=== PATIENT | male | born 1965 | race Caucasian/White ===

== ENCOUNTER 2016-10-22 14:37 | Inpatient (IN) | payer MEDICARE, OTHER ==
[~2016-10-22] VITALS: Ht 175.3 cm; Wt 81.4 kg
[~2016-10-22 14:37] MED LIST: ALB.5NB20 IH; ALPR1TAB2 PO; AMLO-218 PO; ATEN100T PO; BENA10TA48 PO; CARAS PO; DONE10TA60 PO; EMTR200 PO; ESCI20TA PO; LEVO50TA74 PO; LORA-444 PO; LOSA50TA2 PO; OXYC30TA64 PO; PANT40TA4 PO; RALT400T4 PO; TEMA30CA6 PO; ZOF8 PO; [UNRECOGNIZED DRUG - CODE] PO
--- NOTE | 2016-10-22 18:10 | RADRPT ---
PROCEDURE: XR Chest. CLINICAL INDICATION: Chest pain. TECHNIQUE: Single frontal view of the chest was obtained. COMPARISON: Chest x-ray 10/06/2015 05:35 p.m. FINDINGS: The soft tissues are normal. The bony elements are normal. The heart, cardiomediastinal silhouette and hilar structures are normal. The pulmonary vasculature is normal. There is a left-sided aorta. The lungs are clear. The costophrenic angles are normal. IMPRESSION: 1. Stable chest x-ray with no evidence of active cardiopulmonary disease. RPTAT:AAJJ Physician Jose Date Time Electronically viewed and signed by Brent Acharya Physician on 10/22/2016 18:10 /
--- NOTE | 2016-10-22 18:40 | RADRPT ---
PROCEDURE: US Lower extremity Venous. CLINICAL INDICATION: Right leg edema TECHNIQUE: Multiple sonographic images of the right lower extremity deep venous system was obtaine d utilizing grayscale, color-flow, compressive sonography and doppler imaging with augmentation. Th e images were reviewed on a PACS workstation. COMPARISON: None. FINDINGS: There is normal compressibility and flow within the right common femoral, femoral, posterior tibial, peroneal and popliteal veins. There is a right groin AV graft which is patent. RPTAT: AA IMPRESSION: No sonographic evidence for deep venous thrombosis. Patent right groin AV graft. .Mauricio Cox MD, MD Date Time Electronically viewed and signed by .Mauricio Cox MD, on 10/22/2016 18:40 .S/
[2016-10-22] MEDS ORDERED: morphine 4 MG/ML VIAL IV STA ×2 (18:43→22:45)
[2016-10-22 19:08] LABS: ADD SCAN DIFF NO
[2016-10-22 19:11] LABS: BASOPHILS % 0.6 % (0.0-2.0); EOSINOPHILS # 0.2 10^3/ul (0.0-0.5); EOSINOPHILS % 3.7 % (0.0-7.0); HEMATOCRIT 31.7 % (42.0-52.0); HEMOGLOBIN 10.4 g/dl (14.0-18.0); LYMPHOCYTES # 1.9 10^3/ul (0.8-2.9); LYMPHOCYTES % 28.3 % (15.0-51.0); MEAN CORPUSCULAR HEMOGLOBIN 33.2 pg (29.0-33.0); MEAN CORPUSCULAR HGB CONC 32.8 g/dl (32.0-37.0); MEAN CORPUSCULAR VOLUME 101.3 fl (82.0-101.0); MONOCYTE # 0.6 10^3/ul (0.3-0.9); MONOCYTES % 8.6 % (0.0-11.0); NEUTROPHIL # 3.8 10^3/ul (1.6-7.5); NEUTROPHILS % 58.6 % (39.0-77.0); PLATELET COUNT 234 10^3/UL (140-415); RED BLOOD COUNT 3.13 10^6/ul (4.70-6.10); RED CELL DISTRIBUTION WIDTH 13.3 % (11.5-14.5); WHITE BLOOD COUNT 6.5 10^3/ul (4.8-10.8)
[2016-10-22] MEDS ORDERED: ONDANSETRON 4 MG INJ IV STA (19:32)
[2016-10-22] MEDS ORDERED: ALPR2TAB PO (19:34)
[2016-10-22 19:35] LABS: INR 1.14; PROTIME 14.6 Sec (12.2-14.2); PT RATIO 1.1
[2016-10-22 19:36] LABS: PARTIAL THROMBOPLASTIN TIME 29.2 Sec (25.0-35.0)
[2016-10-22 19:38] LABS: ANION GAP 20 (8-16); BLOOD UREA NITROGEN 81 mg/dl (7-20); CALCIUM 9.7 mg/dl (8.4-10.2); CARBON DIOXIDE 25 mmol/L (21-31); CHLORIDE 90 mmol/L (97-110); CREATININE 8.89 mg/dl (0.61-1.24); GLUCOSE 250 mg/dl (70-220); POTASSIUM 4.2 mmol/L (3.5-5.1); SODIUM 131 mmol/L (135-144)
[2016-10-22] MEDS ORDERED: LANT3I SC (19:38)
[2016-10-22 19:43] LABS: CREATINE KINASE 138 IU/L (23-200)
[2016-10-22] MEDS ORDERED: INSU100C SQ (19:44)
[2016-10-22] MEDS ORDERED: MORP60TA37 PO (19:45)
[2016-10-22] MEDS ORDERED: LEVO100T87 PO (19:47)
[2016-10-22] MEDS ORDERED: RANI300T PO (19:47)
[2016-10-22] MEDS ORDERED: CYCL-319 PO (19:47)
[2016-10-22] MEDS ORDERED: [UNRECOGNIZED DRUG - CODE] SQ (19:48)
[2016-10-22] MEDS ORDERED: DONE5TAB32 PO (19:48)
[2016-10-22] MEDS ORDERED: ATEN-51 PO (19:48)
[2016-10-22 19:49] LABS: TROPONIN-I < 0.012 ng/ml (0.00-0.12)
[2016-10-22] MEDS ORDERED: QUET25TA33 PO (19:49)
[2016-10-22] MEDS ORDERED: ABAC300T2 PO (19:49)
[2016-10-22] MEDS ORDERED: OXYC30TA PO (19:50)
[2016-10-22] MEDS ORDERED: ESOM40CA PO (19:50)
[2016-10-22] MEDS ORDERED: PRAV80TA27 PO (19:51)
--- NOTE | 2016-10-22 19:51 | ERA ---
ER Documentation Chief Complaint Date/Time DATE: 10/22/16 TIME: 19:47 Chief Complaint R LEG SWELLING X 4 DAYS HPI This is a 51-year-old male presents to the emergency room for evaluation of right lower extremity pain and swelling for the past 3 days. The patient does state that he is on dialysis and had a right femoral graft done by Dr. Drummond. The patient states that he noted pain over the site, and swelling and contacted his vascular surgeon who advised him to come to the emergency room for admission and a revision of the graft. The patient states that he did go to dialysis on Saturday and completed dialysis. The patient denies any trauma to the area and came to the ER for further evaluation. ROS All systems reviewed and are negative except as per history of present illness. Medications Home Meds Reported Medications Cyclobenzaprine Hcl* (Cyclobenzaprine Hcl*) 10 Mg Tablet, 20 MG PO TID, #60 TAB 10/22/16 Morphine Sulfate* (Ms Contin*) 60 Mg Tablet.sa, 60 MG PO Q12, TAB.SA 10/22/16 Insulin Lispro (Humalog) 100 Unit/1 Ml Cartridge, 0 SQ SLIDING SCALE DEPENDS HOW MUCH BSIS HIGH 10/22/16 Insulin Glargine* (Lantus*) 100 Unit/Ml Soln, 15 UNIT SC QHS, #1 VIAL 10/22/16 Alprazolam* (Xanax*) 2 Mg Tablet, 2 MG PO TID Y for ANXIETY, TAB 10/22/16 Discontinued Reported Medications Temazepam* (Restoril*) 30 Mg Capsule, 30 MG PO HS Y for INSOMNIA, CAP 10/06/15 Lorazepam* (Ativan*) 2 Mg Tablet, 2 MG PO Q6 Y for ANXIETY, #60 TAB 10/06/15 Multivitamins (Multiple Vitamin) 1 Tab Tablet, 1 TAB PO DAILY, TAB 05/06/15 Losartan Potassium* (Cozaar*) 50 Mg Tablet, 50 MG PO DAILY, TAB 05/06/15 Atenolol* (Atenolol*) 100 Mg Tablet, 100 MG PO DAILY, TAB 05/06/15 Levothyroxine Sodium* (Levothyroxine Sodium*) 50 Mcg Tablet, 50 MCG PO AC BREAKFAST, TAB 02/04/15 Emtricitabine* (Emtriva*) 200 Mg Cap, 200 MG PO DAILY 11/02/12 Ondansetron Hcl* (Zofran*) 8 Mg Tab, 8 MG PO Q6 Y 11/01/12 Oxycodone Hcl* (Oxycontin*) 30 Mg Tab.sr.12h, 30 MG PO Y 11/01/12 Donepezil* (Aricept* ODT) 10 Mg/Udtablet Tab.rapdis, 10 MG PO DAILY 11/01/12 Escitalopram Oxalate* (Lexapro*) 20 Mg Tablet, 20 MG PO DAILY 11/01/12 Raltegravir Potassium* (Isentress*) 400 Mg Tablet, 400 MG PO BID 11/01/12 Albuterol Sulfate* (Albuterol Sulfate* Neb) 20 Ml Nebu, 20 ML IH BID 04/21/12 Discontinued Scripts Pantoprazole* (Pantoprazole*) 40 Mg Tablet.dr, 40 MG PO BID for 30 Days, TAB Prov:JASON SRINIVASAN BUSINESS INTELLIGENCE DIRECTOR 03/25/15 Benazepril Hcl* (Benazepril Hcl*) 10 Mg Tab, 10 MG PO BID for 30 Days Prov:JEREMY BROWN. 02/13/15 Sucralfate* (Carafate*) 1 Gm/10 Ml Susp, 1 GM PO QID for 30 Days Prov:JEREMY BROWN Arleen 02/13/15 Alprazolam* (Xanax*) 1 Mg Tab, 1 MG PO HS Y for anxiety for 30 Days, TAB Prov:JEREMY BROWN. 02/13/15 Amlodipine Besylate* (Norvasc*) 10 Mg Tab, 10 MG PO DAILY for 30 Days Prov:JEREMY BROWN. 02/13/15 Allergies Allergies: Coded Allergies: No Known Allergies (Verified Allergy, Mild, 10/22/16) PMhx/Soc History of Surgery: Yes (av fistula plasement to bilateral upper extremeties.) Anesthesia Reaction: No Hx Neurological Disorder: No Hx Respiratory Disorders: No Hx Cardiac Disorders: Yes (htn) Hx Psychiatric Problems: No Hx Miscellaneous Medical Probl: No (pt did not disclose) Hx Alcohol Use: No Hx Substance Use: No Hx Tobacco Use: No Smoking Status: Never smoker Physical Exam Vitals Vital Signs Date Time Temp Pulse Resp B/P Pulse Ox O2 Delivery O2 Flow Rate FiO2 10/22/16 18:44 Nasal Cannula 3 10/22/16 14:43 97.8 76 18 94/61 99 Physical Exam INITIAL VITAL SIGNS: Reviewed by me GENERAL: The patient is well developed and appropriate for usual state of health in no apparent distress HEENT: Pupils equal, round, and reactive to light. EOMI. There is no scleral icterus. NECK: C-spine is soft and supple, there is no meningismus. There is no cervical lymphadenopathy. LUNGS: Clear to auscultation bilaterally. There are no rales, wheezes or rhonchi. HEART: Regular rate and rhythm, no murmurs, clicks, rubs or gallops. ABDOMEN: Soft, non-tender, non-distended. There are bowel sounds in all four quadrants. No rebound or guarding. EXTREMITIES: There is no peripheral cyanosis or edema. No focal swelling or erythema. Palpable dorsalis pedis pulse, posterior tibial pulse equal bilaterally NEUROLOGICAL: The patient moves all four extremities with 5/5 strength. Cranial nerves II - XII are intact. Normal gait. Alert and oriented SKIN: Right femoral AV graft incision site, clean dry and intact, no palpable thrill from there is no apparent rash or petechiae. HEME/LYMPHATIC: There is no evidence of excessive bruising or lymphedema. PSYCHIATRIC: The patient does not appear anxious or depressed. Result Diagram: 10/22/16183910/22/161839 Results 24 hrs Laboratory Tests Test 10/22/16 18:40 White Blood Count 6.510^3/ul Red Blood Count 3.1310^6/ul Hemoglobin 10.4g/dl Hematocrit 31.7% Mean Corpuscular Volume 101.3fl Mean Corpuscular Hemoglobin 33.2pg Mean Corpuscular Hemoglobin Concent 32.8g/dl Red Cell Distribution Width 13.3% Platelet Count 27707^3/UL Mean Platelet Volume 11.0fl Neutrophils % 58.6% Lymphocytes % 28.3% Monocytes % 8.6% Eosinophils % 3.7% Basophils % 0.6% Nucleated Red Blood Cells % 0.0/100WBC Neutrophils # 3.810^3/ul Lymphocytes # 1.910^3/ul Monocytes # 0.610^3/ul Eosinophils # 0.210^3/ul Basophils # 0.010^3/ul Nucleated Red Blood Cells # 0.010^3/ul Prothrombin Time 14.6Sec Prothrombin Time Ratio 1.1 INR International Normalized Ratio 1.14 Activated Partial Thromboplast Time 29.2Sec Sodium Level 131mmol/L Potassium Level 4.2mmol/L Chloride Level 90mmol/L Carbon Dioxide Level 25mmol/L Anion Gap 20 Blood Urea Nitrogen 81mg/dl Creatinine 8.89mg/dl Glucose Level 250mg/dl Calcium Level 9.7mg/dl Creatine Kinase 138IU/L Creatine Kinase Index Pending Creatinine Kinase MB (Mass) Pending Troponin I Pending Current Medications Medications (Trade) Dose Ordered Sig/Anita Route PRN Reason Start Time Stop Time Status Last Admin Dose Admin Morphine Sulfate (morphine) 4 mg ONCE STAT IV 10/22/16 18:43 10/22/16 18:44 DC 10/22/16 18:54 Morphine Sulfate (morphine) 6 mg ONCE ONCE IV 10/22/16 20:00 10/22/16 20:01 Ondansetron HCl (Zofran Inj) 4 mg ONCE STAT IV 10/22/16 19:32 10/22/16 19:34 DC Ondansetron HCl (Zofran Inj) 4 mg BRIDGE ORDER PRN IV NAUSEA AND/OR VOMITING 10/22/16 20:00 10/23/16 19:59 Acetaminophen (Tylenol Tab) 650 mg ER BRIDGE PRN PO MILD PAIN/FEVER 10/22/16 20:00 10/23/16 19:59 Procedures/MDM Chest X-ray 1V Interpreted by me: Soft Tissue: No acute abnormalities Bones: No acute abnormalities Mediastinum/Cardiac Silhouette/Lungs: [No acute abnormalities] EKG: Rate/Rhythm: [Normal Sinus Rhythm] QRS, ST, T-waves: [No changes consistent w/ acute ischemia] Impression: [No evidence of ischemia or arrhythmia] Ultrasound left lower extremity: No sonographic evidence for deep venous thrombosis. Patent right groin AV graft. This 41-year-old male presents to the emergency room for evaluation of right lower extremity pain and swelling. When I evaluated this patient I did note some swelling in the right thigh and right lower extremity. I did obtain ultrasound which does not show any signs of a DVT. The patient does have a patent right groin AV graft. The patient does have equal pulses bilaterally and no signs of cyanosis at this time. Refill is less than 3 seconds in the bilateral lower extremities. The patient did have lab work drawn no signs of hyperkalemia at this time. This patient will be placed in for admission at this time on a [facility] floor under the care of her panel physician Dr. Stone. Departure Diagnosis: Primary Impression: AV shunt malfunction Additional Impressions: Pain of right leg Hypertension Macrocytic anemia Renal insufficiency Condition: Stable SONAM MATTHEWS DO October 22, 2016 19:51
[2016-10-22 19:53] LABS: CK-MB 4.41 ng/ml (0.0-2.4)
[2016-10-22] MEDS ORDERED: FENO145T19 PO (19:54)
[2016-10-22] MEDS ORDERED: LIPA1CAP6 PO (19:54)
[2016-10-22] MEDS ORDERED: APIX2.5T PO (19:54)
[2016-10-22] MEDS ORDERED: DOLU50TA PO (19:55)
[2016-10-22] MEDS ORDERED: EMTR200 PO (19:56)
[2016-10-22 19:57] LABS: TROPONIN-I < 0.012 ng/ml (0.00-0.12)
[2016-10-22] MEDS ORDERED: ACETAMINOPHEN 325 MG TAB PO PRN (20:00)
[2016-10-22] MEDS ORDERED: morphine 10 MG INJ IV ONE (20:00)
[2016-10-22] MEDS ORDERED: ONDANSETRON 4 MG INJ IV PRN ×2 (20:00→21:30)
[2016-10-22] MEDS: morphine (ER) 30 MG TAB PO SCH (21:30)
[2016-10-22] MEDS ORDERED: EMTRICITABINE 200 MG CAP PO SCH (21:30)
[2016-10-22] MEDS ORDERED: ALPRAZOLAM 1 MG TAB PO PRN (21:30)
[2016-10-22] MEDS ORDERED: oxyCODONE 15 MG TAB PO PRN (21:30)
[2016-10-22 21:42] VITALS: BP 135/68; RESP 18
[2016-10-22] MEDS ORDERED: GLUCAGON 1 MG INJ IM PRN (22:00)
[2016-10-22] MEDS ORDERED: DEXTROSE 50% 50 ML SYRINGE IV PRN ×2 (22:00)
[2016-10-22] MEDS ORDERED: GLUCOSE GEL 15 GRAM TUBE BUCCAL PRN (22:00)
[2016-10-22] MEDS ORDERED: GLUCOSE GEL 15 GRAM TUBE PO PRN ×2 (22:00)
[2016-10-22 22:13] VITALS: Ht 175.3 cm; Wt 81.4 kg
[2016-10-22] MEDS ORDERED: morphine 10 MG INJ IV PRN (23:00)
[2016-10-22] MEDS: INSULIN ASPART [NOVOLOG] 3 ML PEN SC SCH (23:33)
[2016-10-22] MEDS: INSULIN GLARGINE [LANtus] 3 ML PEN SC SCH (23:36)
[2016-10-22] MEDS: ALPRAZOLAM 0.25 MG TAB PO PRN (23:47)
[2016-10-23] VITALS (7 sets, daily range): BP systolic 95–130; BP diastolic 48–74; PULSE 61–70; RESP 17–18
[2016-10-23] MEDS ORDERED: ACCU-CHEK XX SCH (02:00)
[2016-10-23] MEDS: ACCU-CHEK XX SCH (02:00)
[2016-10-23] MEDS ORDERED: SODIUM CHLORIDE 1 GM TAB PO ONE (04:00)
[2016-10-23] MEDS: morphine 4 MG/ML VIAL IV PRN (04:33)
[2016-10-23] MEDS: ONDANSETRON 4 MG INJ IV PRN (04:47)
[2016-10-23 05:57] LABS: ADD SCAN DIFF NO
[2016-10-23 06:03] LABS: BASOPHILS % 0.6 % (0.0-2.0); EOSINOPHILS # 0.2 10^3/ul (0.0-0.5); EOSINOPHILS % 3.8 % (0.0-7.0); HEMATOCRIT 30.7 % (42.0-52.0); HEMOGLOBIN 10.4 g/dl (14.0-18.0); LYMPHOCYTES % 30.8 % (15.0-51.0); MEAN CORPUSCULAR HEMOGLOBIN 34.2 pg (29.0-33.0); MEAN CORPUSCULAR HGB CONC 33.9 g/dl (32.0-37.0); MEAN PLATELET VOLUME 10.9 fl (7.4-10.4); MONOCYTE # 0.6 10^3/ul (0.3-0.9); MONOCYTES % 9.6 % (0.0-11.0); NEUTROPHIL # 3.5 10^3/ul (1.6-7.5); NEUTROPHILS % 54.9 % (39.0-77.0); PLATELET COUNT 219 10^3/UL (140-415); RED BLOOD COUNT 3.04 10^6/ul (4.70-6.10); RED CELL DISTRIBUTION WIDTH 13.2 % (11.5-14.5); WHITE BLOOD COUNT 6.3 10^3/ul (4.8-10.8)
[2016-10-23 06:34] LABS: ALBUMIN 3.7 g/dl (3.3-4.9)
[2016-10-23 06:35] LABS: POTASSIUM 3.7 mmol/L (3.5-5.1)
[2016-10-23 06:37] LABS: ALBUMIN/GLOBULIN RATIO 1.05; CREATININE 9.81 mg/dl (0.61-1.24); TOTAL PROTEIN 7.2 g/dl (6.1-8.1)
[2016-10-23 06:38] LABS: CALCIUM 9.4 mg/dl (8.4-10.2); MAGNESIUM 2.3 mg/dl (1.7-2.5)
[2016-10-23] MEDS: LEVOTHYROXINE 100 MCG TAB PO SCH (06:41)
[2016-10-23 06:47] LABS: TROPONIN-I 0.013 ng/ml (0.00-0.12)
[2016-10-23 07:12] LABS: CK-MB 3.87 ng/ml (0.0-2.4)
[2016-10-23] MEDS: INSULIN ASPART [NOVOLOG] 3 ML PEN SC SCH ×4 (07:30→21:00)
[2016-10-23] MEDS ORDERED: INSULIN ASPART [NOVOLOG] 3 ML PEN SC SCH (07:30)
[2016-10-23] MEDS: ABACAVIR 300 MG TAB PO SCH ×2 (08:22→20:55)
[2016-10-23] MEDS: DOLUTEGRAVIR SODIUM 50 MG TABLET PO SCH (08:22)
[2016-10-23] MEDS: FAMOTIDINE 20 MG TAB PO SCH (08:22)
[2016-10-23] MEDS: CREON (24K-76K-120K) 1 CAP PO SCH ×3 (08:22→17:06)
[2016-10-23] MEDS: FENOFIBRATE 145 MG TAB PO SCH (08:22)
[2016-10-23] MEDS: DONEPEZIL 5 MG TAB PO SCH (08:23)
[2016-10-23] MEDS: morphine (ER) 30 MG TAB PO SCH ×2 (08:23→21:55)
[2016-10-23] MEDS: ATENOLOL 25 MG TAB PO SCH (08:23)
--- NOTE | 2016-10-23 08:32 | HP ---
DATE OF ADMISSION: 10/22/2016 TIME SEEN: 0 CHIEF COMPLAINT: Right leg swelling. HISTORY OF PRESENT ILLNESS: The patient is a 51-year-old male with a history of hypertension, HIV, gastritis, chronic right subclavian thrombus, hypothyroidism, depression, and end-stage renal diseas e, on dialysis who presented to the emergency department with right leg swelling and pain. He had a right femoral graft done last week, and he said since then he noted swelling on his right leg and h as been progressively getting worse. He also complained of pain which is also making it difficult f or him to walk. He spoke with the vascular surgeon, Dr. Drummond, who instructed him to come to the [facility] for revision of the graft. When he presented to the ER, blood pressure was 94/61, heart rate 76, respiratory rate 18, temperatu re 97.8, oxygen saturation 99%. Laboratory value shows a hemoglobin of 10.4, sodium 131, chloride 9 0, BUN 81, creatinine 8.9, glucose 250. Otherwise, the rest of CBC and BMP are within acceptable ra nge. Right lower extremity venous study shows a patent right groin AV graft with no evidence of DVT . The patient had a full dialysis on Saturday, and he is due for dialysis tomorrow. REVIEW OF SYSTEMS: A 12-point review was performed and negative except as mentioned in the HPI. PAST MEDICAL HISTORY: As per HPI. Pancreatitis and depression. SOCIAL HISTORY: Denied a history of tobacco, alcohol or illicit drug use. ALLERGIES: NO KNOWN DRUG ALLERGIES. HOME MEDICATIONS: 1. Abacavir. 2. Tivicay. 3. Emtriva. 4. Cyclobenzaprine. 5. Donepezil. 6. Eliquis. 7. Atenolol. 8. Pravastatin. 9. Xanax. 10. MS-Contin 15 mg twice a day (even though listed, the patient said he has not been taking, and w hen he did it was 15 mg that he was taking). 11. Oxycodone. 12. ____. 13. Nexium. 14. Creon. 15. Ranitidine. 16. Insulin. 17. Levothyroxine. 18. Somatropin. PHYSICAL EXAMINATION: VITAL SIGNS: Stable. GENERAL: The patient in mild distress due to pain on his right leg. He is, however, answering ques tions appropriately and able to speak in full sentences. HEENT: No obvious head deformity. Pupils are reactive to light. Most of his teeth are missing inc luding he is edentulous on the bottom teeth. CARDIOVASCULAR: Regular rate and rhythm with no extra sounds. LUNGS: Clear. ABDOMEN: Soft, nontender, nondistended. Positive bowel sounds. EXTREMITIES: His right leg is swollen from the hip down. There is pitting edema. Surgical site on his right thigh seems to be healing well without any sign of draining pus or blood. LABORATORY: Pertinent positive results as mentioned in the HPI. IMAGING: Chest x-ray and a right lower extremity venous study with results as mentioned in the HPI. IMPRESSION: 1. Right leg swelling and pain. 2. Recent right femoral arteriovenous graft. 3. End-stage renal disease, on dialysis. 4. History of human immunodeficiency virus, with undetectable viral load as well as CD4 counts of a round 700 (per patient, done last week). 5. History of depression. 6. History of pancreatitis. 7. History of gastritis. 8. History of hypothyroidism. PLAN: The patient is currently awaiting evaluation by his vascular surgeon for revision of the tanja t. In the meantime, we will provide pain medication. Will place a nephrology consult for dialysis. He will be continued with his home medication including his HIV medication. Further workup and management will be per clinical course. Dictated By: YASMANI MIX/KOBE Conf#: [id number] DID#: [id number]
[2016-10-23] MEDS: CYCLOBENZAPRINE 10 MG TAB PO SCH ×3 (08:38→20:56)
[2016-10-23] MEDS ORDERED: SOMATROPIN 6 MG XX SCH (09:00)
[2016-10-23] MEDS ORDERED: DONEPEZIL 5 MG TAB PO SCH (09:00)
[2016-10-23] MEDS ORDERED: APIXABAN 5 MG TABLET PO SCH (09:30)
[2016-10-23] MEDS: HYDROmorphONE 1 MG/ML SYG IV PRN ×2 (11:27→20:26)
--- NOTE | 2016-10-23 16:46 | PN ---
Date/Time of Note Date/Time of Note DATE: 10/23/16 TIME: 16:41 Assessment/Plan VTE Prophylaxis VTE Prophylaxis Intervention: SCD's Lines/Catheters IV [facility] Saline [facility] Urinary Cath still in place: No Assessment/Plan Chief Complaint/Hosp Course Assessment and plan 1. Right leg swelling secondary to recent right femoral arteriovenous graft. Vascular surgeon to follow. Continue with analgesics. Dialysis per team primary care physician. 2. End-stage renal disease on dialysis. Monitor for electrolyte disturbances. Nurse Transition consulted. Will follow up with recommendations. 3. Anemia. Likely of chronic kidney disease. Stable at present. Will monitor for now. 4. History of HIV. Patient resumed on his HIV medications. Of note CD4 count of around 700 was reported per patient 5. Hypertension. Continue antihypertensives and adjust as needed 6. Dyslipidemia. Continue statin medication 7. Diabetes. Patient resumed on his insulin regimen. We will follow-up on A1c. 8. Hypothyroidism. Continue on Synthroid medication Disposition and plan: Await vascular surgeon and nephrology recommendations. Continue inpatient monitoring. Continue with analgesics. Discussed plan of care with Dr. Cronin Problems: Subjective 24 Hr Interval Summary Free Text/Dictation Resting at this time. Reports having pain on right lower extreme Exam/Review of Systems Vital Signs Vitals Vital Signs Date Time Temp Pulse Resp B/P Pulse Ox O2 Delivery O2 Flow Rate FiO2 10/23/16 08:42 97.4 64 18 111/59 93 10/22/16 18:44 Nasal Cannula 3 Intake and Output 10/22/16 10/22/16 10/23/16 15:00 23:00 07:00 Intake Total 480 ml Balance 480 ml Exam Constitutional: alert, oriented Psych: nl mood/affect Head: normocephalic Neck: supple, No jvd Respiratory: clear to auscultation, normal air movement Cardiovascular: regular rate and rhythm Gastrointestinal: non-tender, soft Musculoskeletal: swelling (Right lower extremity) Neurological: DOUBLE END SEWER II-XII intact, nl mental status, nl speech Results Result Diagram: 10/23/16 0535 10/23/16 0535 Results 24 hrs Laboratory Tests Test 10/22/16 18:40 10/22/16 21:04 10/22/16 23:30 10/23/16 02:19 White Blood Count 6.5 # Red Blood Count 3.13 L Hemoglobin 10.4 L Hematocrit 31.7 L Mean Corpuscular Volume 101.3 H Mean Corpuscular Hemoglobin 33.2 H Mean Corpuscular Hemoglobin Concent 32.8 Red Cell Distribution Width 13.3 Platelet Count 234 Mean Platelet Volume 11.0 #H Neutrophils % 58.6 Lymphocytes % 28.3 Monocytes % 8.6 Eosinophils % 3.7 Basophils % 0.6 Nucleated Red Blood Cells % 0.0 Neutrophils # 3.8 Lymphocytes # 1.9 Monocytes # 0.6 Eosinophils # 0.2 Basophils # 0.0 Nucleated Red Blood Cells # 0.0 Prothrombin Time 14.6 H Prothrombin Time Ratio 1.1 INR International Normalized Ratio 1.14 Activated Partial Thromboplast Time 29.2 Sodium Level 131 L Potassium Level 4.2 Chloride Level 90 L Carbon Dioxide Level 25 Anion Gap 20 H Blood Urea Nitrogen 81 H Creatinine 8.89 H Glucose Level 250 H Calcium Level 9.7 Creatine Kinase 138 Creatine Kinase Index 3.2 Creatinine Kinase MB (Mass) 4.41 H Troponin I < 0.012 Bedside Glucose 217 230 H 175 Test 10/23/16 05:35 10/23/16 08:00 10/23/16 12:10 White Blood Count 6.3 Red Blood Count 3.04 L Hemoglobin 10.4 L Hematocrit 30.7 L Mean Corpuscular Volume 101.0 Mean Corpuscular Hemoglobin 34.2 H Mean Corpuscular Hemoglobin Concent 33.9 Red Cell Distribution Width 13.2 Platelet Count 219 Mean Platelet Volume 10.9 H Neutrophils % 54.9 Lymphocytes % 30.8 Monocytes % 9.6 Eosinophils % 3.8 Basophils % 0.6 Nucleated Red Blood Cells % 0.0 Neutrophils # 3.5 Lymphocytes # 2.0 Monocytes # 0.6 Eosinophils # 0.2 Basophils # 0.0 Nucleated Red Blood Cells # 0.0 Sodium Level 136 Potassium Level 3.7 Chloride Level 93 L Carbon Dioxide Level 24 Anion Gap 23 H Blood Urea Nitrogen 90 H Creatinine 9.81 H Glucose Level 146 # Calcium Level 9.4 Phosphorus Level 10.0 H Magnesium Level 2.3 Total Bilirubin 0.0 L Direct Bilirubin 0.00 Indirect Bilirubin 0.0 Aspartate Amino Transf (AST/SGOT) 73 H Alanine Aminotransferase (ALT/SGPT) 75 H Alkaline Phosphatase 58 Creatine Kinase 119 Creatine Kinase Index 3.3 Creatinine Kinase MB (Mass) 3.87 H Troponin I 0.013 Total Protein 7.2 Albumin 3.7 Globulin 3.50 H Albumin/Globulin Ratio 1.05 Bedside Glucose 130 123 Medications Medications Current Medications Abacavir Sulfate (Ziagen) 300 mg BID PO Last administered on 10/23/16 08:22; Admin Dose 300 MG; Start 10/23/16 at 09:00 Atenolol (Tenormin) 25 mg DAILY PO Last administered on 10/23/16 08:23; Admin Dose 25 MG; Start 10/23/16 at 09:00 Cyclobenzaprine HCl (Flexeril) 20 mg TID PO Last administered on 10/23/16 13: 32; Admin Dose 20 MG; Start 10/23/16 at 09:00 Dolutegravir Sodium (Tivicay) 50 mg DAILY PO Last administered on 10/23/16 08: 22; Admin Dose 50 MG; Start 10/23/16 at 09:00 Emtricitabine (Emtriva) 200 mg Q96H PO ; Start 10/22/16 at 21:30 Fenofibrate (Tricor) 145 mg DAILY PO Last administered on 10/23/16 08:22; Admin Dose 145 MG; Start 10/23/16 at 09:00 Morphine Sulfate (Ms Contin (Er)) 60 mg Q12 PO Last administered on 10/23/16 08:23; Admin Dose 60 MG; Start 10/22/16 at 21:30 Oxycodone HCl (Roxicodone) 30 mg Q4H PRN PO PAIN; Start 10/22/16 at 21:30 Quetiapine Fumarate (Seroquel) 25 mg BID PO ; Start 10/23/16 at 21:00 Miscellaneous Information 6 mg DAILY SQ ; Start 10/23/16 at 09:00; Status UNV Famotidine (Pepcid) 20 mg DAILY PO Last administered on 10/23/16 08:22; Admin Dose 20 MG; Start 10/23/16 at 09:00 Miscellaneous Information 1 ea NOTE XX ; Start 10/22/16 at 22:00 Glucose (Glutose) 15 gm Q15M PRN PO DECREASED GLUCOSE; Start 10/22/16 at 22:00 Glucose (Glutose) 22.5 gm Q15M PRN PO DECREASED GLUCOSE; Start 10/22/16 at 22: 00 Dextrose (D50w Syringe) 25 ml Q15M PRN IV DECREASED GLUCOSE; Start 10/22/16 at 22:00 Dextrose (D50w Syringe) 50 ml Q15M PRN IV DECREASED GLUCOSE; Start 10/22/16 at 22:00 Glucagon (Glucagen) 1 mg Q15M PRN IM DECREASED GLUCOSE; Start 10/22/16 at 22:00 Glucose (Glutose) 15 gm Q15M PRN BUCCAL DECREASED GLUCOSE; Start 10/22/16 at 22 :00 Alprazolam (Xanax) 2 mg TID PRN PO ANXIETY Last administered on 10/22/16 23:47 ; Admin Dose 2 MG; Start 10/22/16 at 22:00 Atorvastatin Calcium (Lipitor) 20 mg DAILY@21 PO ; Start 10/23/16 at 21:00 Ondansetron HCl (Zofran Inj) 4 mg Q6H PRN IV NAUSEA AND/OR VOMITING Last administered on 10/23/16 04:47; Admin Dose 4 MG; Start 10/22/16 at 22:30 Donepezil HCl (Aricept) 5 mg DAILY PO Last administered on 10/23/16 08:23; Admin Dose 5 MG; Start 10/23/16 at 09:00 Morphine Sulfate (morphine) 4 mg Q4H PRN IV PAIN Last administered on 04:33; Admin Dose 4 MG; Start 10/22/16 at 23:00 Insulin Glargine (Lantus) 15 unit QHS SC Last administered on 10/22/16 23:36; Admin Dose 15 UNIT; Start 10/22/16 at 22:49 Diagnostic Test (Pha) (Accu-Chek) 1 ea 02 XX Last administered on 10/23/16 02: 00; Admin Dose 1 EA; Start 10/23/16 at 02:00 Hydromorphone HCl (Dilaudid) 1 mg Q4H PRN IV PAIN Last administered on 11:27; Admin Dose 1 MG; Start 10/23/16 at 07:00 Apixaban (Eliquis) 2.5 mg BID PO Last administered on 10/23/16 11:25; Admin Dose 2.5 MG; Start 10/23/16 at 09:30 CORDELIA CHAVARRIA October 23, 2016 16:46
[2016-10-23] MEDS: [UNRECOGNIZED DRUG - REMARK] XX SCH (17:00)
--- NOTE | 2016-10-23 17:05 | CONS ---
Date/Time of Note Date/Time of Note DATE: 10/23/16 TIME: 17:00 Assessment/Plan Assessment/Plan Additional Assessment/Plan 51 yo Male with 1. Right leg swelling secondary to recent right femoral arteriovenous graft. 2. End-stage renal disease on dialysis, HD TTS 3. Anemia. Chronic kidney disease. 4. History of HIV. 5. Hypertension. 6. Dyslipidemia. 7. Diabetes. 8. Hypothyroidism. 9. Acute on chronic pain. Pt is on HD, no new complaints, stable, We are able to dialyze through RLE AVG at this time Vascular Sx Dr Brandt, OR tomorrow, PC placement tomorrow Cont current Rx and pLan, Cont current HD treatment HD TTS Schedule. Renal Diet/ADA Diet Consultation Date/Type/Reason Admit Date/Time October 22, 2016 at 19:44 Date of Consultation: October 23, 2016 Type of Consultation: Renal Reason for Consultation ESRD Referring Provider: CORDELIA CHAVARRIA Hx of Present Illness 51-year-old male with a history of hypertension, HIV, gastritis, chronic right subclavian thrombus, hypothyroidism, depression, and end-stage renal disease, on dialysis who presented to the emergency department with right leg swelling and pain, Pt has underlying RLE AVF, recent de-clotting. Vascular Sx Dr Brandt. Nephrology consulted for management of ESRD. Constitutional: No requiring O2 Eyes: no complaints ENT: no complaints Respiratory: shortness of breath Cardiovascular: no complaints Gastrointestinal: no complaints Genitourinary: no complaints Musculoskeletal: back pain, swelling Skin: no complaints Psychological: nl mood/affect Past Medical History Medical History: pancreatitis, renal disease, other (HIV) Past Surgical History Past Surgical Hx: other (AVG RLE) Family History Significant Family History: no pertinent family hx Social History Alcohol Use: none Smoking Status: Never smoker Drug Use: none Exam/Review of Systems Vital Signs Vitals Vital Signs Date Time Temp Pulse Resp B/P Pulse Ox O2 Delivery O2 Flow Rate FiO2 10/23/16 08:42 97.4 64 18 111/59 93 10/22/16 18:44 Nasal Cannula 3 Intake and Output 10/22/16 10/22/16 10/23/16 15:00 23:00 07:00 Intake Total 480 ml Balance 480 ml Exam Constitutional: alert, No distress Head: atraumatic Eyes: EOMI Neck: No jvd Respiratory: No diminished breath sounds, No labored breathing Cardiovascular: edema (RLE), regular rate and rhythm Gastrointestinal: soft, No ascites, No distended, No rebound or guarding Extremities: edema Neurological: SECOND CRUSHER II-XII intact, No confused, No lethargic Skin: No diaphoresis Results Result Diagram: 10/23/16 0535 10/23/16 0535 Results 24 hrs Laboratory Tests Test 10/22/16 18:40 10/22/16 21:04 10/22/16 23:30 10/23/16 02:19 White Blood Count 6.5 # Red Blood Count 3.13 L Hemoglobin 10.4 L Hematocrit 31.7 L Mean Corpuscular Volume 101.3 H Mean Corpuscular Hemoglobin 33.2 H Mean Corpuscular Hemoglobin Concent 32.8 Red Cell Distribution Width 13.3 Platelet Count 234 Mean Platelet Volume 11.0 #H Neutrophils % 58.6 Lymphocytes % 28.3 Monocytes % 8.6 Eosinophils % 3.7 Basophils % 0.6 Nucleated Red Blood Cells % 0.0 Neutrophils # 3.8 Lymphocytes # 1.9 Monocytes # 0.6 Eosinophils # 0.2 Basophils # 0.0 Nucleated Red Blood Cells # 0.0 Prothrombin Time 14.6 H Prothrombin Time Ratio 1.1 INR International Normalized Ratio 1.14 Activated Partial Thromboplast Time 29.2 Sodium Level 131 L Potassium Level 4.2 Chloride Level 90 L Carbon Dioxide Level 25 Anion Gap 20 H Blood Urea Nitrogen 81 H Creatinine 8.89 H Glucose Level 250 H Calcium Level 9.7 Creatine Kinase 138 Creatine Kinase Index 3.2 Creatinine Kinase MB (Mass) 4.41 H Troponin I < 0.012 Bedside Glucose 217 230 H 175 Test 10/23/16 05:35 10/23/16 08:00 10/23/16 12:10 White Blood Count 6.3 Red Blood Count 3.04 L Hemoglobin 10.4 L Hematocrit 30.7 L Mean Corpuscular Volume 101.0 Mean Corpuscular Hemoglobin 34.2 H Mean Corpuscular Hemoglobin Concent 33.9 Red Cell Distribution Width 13.2 Platelet Count 219 Mean Platelet Volume 10.9 H Neutrophils % 54.9 Lymphocytes % 30.8 Monocytes % 9.6 Eosinophils % 3.8 Basophils % 0.6 Nucleated Red Blood Cells % 0.0 Neutrophils # 3.5 Lymphocytes # 2.0 Monocytes # 0.6 Eosinophils # 0.2 Basophils # 0.0 Nucleated Red Blood Cells # 0.0 Sodium Level 136 Potassium Level 3.7 Chloride Level 93 L Carbon Dioxide Level 24 Anion Gap 23 H Blood Urea Nitrogen 90 H Creatinine 9.81 H Glucose Level 146 # Calcium Level 9.4 Phosphorus Level 10.0 H Magnesium Level 2.3 Total Bilirubin 0.0 L Direct Bilirubin 0.00 Indirect Bilirubin 0.0 Aspartate Amino Transf (AST/SGOT) 73 H Alanine Aminotransferase (ALT/SGPT) 75 H Alkaline Phosphatase 58 Creatine Kinase 119 Creatine Kinase Index 3.3 Creatinine Kinase MB (Mass) 3.87 H Troponin I 0.013 Total Protein 7.2 Albumin 3.7 Globulin 3.50 H Albumin/Globulin Ratio 1.05 Bedside Glucose 130 123 Medications Medications Current Medications Abacavir Sulfate (Ziagen) 300 mg BID PO Last administered on 10/23/16 08:22; Admin Dose 300 MG; Start 10/23/16 at 09:00 Atenolol (Tenormin) 25 mg DAILY PO Last administered on 10/23/16 08:23; Admin Dose 25 MG; Start 10/23/16 at 09:00 Cyclobenzaprine HCl (Flexeril) 20 mg TID PO Last administered on 10/23/16 13: 32; Admin Dose 20 MG; Start 10/23/16 at 09:00 Dolutegravir Sodium (Tivicay) 50 mg DAILY PO Last administered on 10/23/16 08: 22; Admin Dose 50 MG; Start 10/23/16 at 09:00 Emtricitabine (Emtriva) 200 mg Q96H PO ; Start 10/22/16 at 21:30 Fenofibrate (Tricor) 145 mg DAILY PO Last administered on 10/23/16 08:22; Admin Dose 145 MG; Start 10/23/16 at 09:00 Morphine Sulfate (Ms Contin (Er)) 60 mg Q12 PO Last administered on 10/23/16 08:23; Admin Dose 60 MG; Start 10/22/16 at 21:30 Oxycodone HCl (Roxicodone) 30 mg Q4H PRN PO PAIN; Start 10/22/16 at 21:30 Quetiapine Fumarate (Seroquel) 25 mg BID PO ; Start 10/23/16 at 21:00 Miscellaneous Information 6 mg DAILY SQ ; Start 10/23/16 at 09:00; Status UNV Famotidine (Pepcid) 20 mg DAILY PO Last administered on 10/23/16 08:22; Admin Dose 20 MG; Start 10/23/16 at 09:00 Miscellaneous Information 1 ea NOTE XX ; Start 10/22/16 at 22:00 Glucose (Glutose) 15 gm Q15M PRN PO DECREASED GLUCOSE; Start 10/22/16 at 22:00 Glucose (Glutose) 22.5 gm Q15M PRN PO DECREASED GLUCOSE; Start 10/22/16 at 22: 00 Dextrose (D50w Syringe) 25 ml Q15M PRN IV DECREASED GLUCOSE; Start 10/22/16 at 22:00 Dextrose (D50w Syringe) 50 ml Q15M PRN IV DECREASED GLUCOSE; Start 10/22/16 at 22:00 Glucagon (Glucagen) 1 mg Q15M PRN IM DECREASED GLUCOSE; Start 10/22/16 at 22:00 Glucose (Glutose) 15 gm Q15M PRN BUCCAL DECREASED GLUCOSE; Start 10/22/16 at 22 :00 Alprazolam (Xanax) 2 mg TID PRN PO ANXIETY Last administered on 10/22/16 23:47 ; Admin Dose 2 MG; Start 10/22/16 at 22:00 Atorvastatin Calcium (Lipitor) 20 mg DAILY@21 PO ; Start 10/23/16 at 21:00 Ondansetron HCl (Zofran Inj) 4 mg Q6H PRN IV NAUSEA AND/OR VOMITING Last administered on 10/23/16 04:47; Admin Dose 4 MG; Start 10/22/16 at 22:30 Donepezil HCl (Aricept) 5 mg DAILY PO Last administered on 10/23/16 08:23; Admin Dose 5 MG; Start 10/23/16 at 09:00 Morphine Sulfate (morphine) 4 mg Q4H PRN IV PAIN Last administered on 04:33; Admin Dose 4 MG; Start 10/22/16 at 23:00 Insulin Glargine (Lantus) 15 unit QHS SC Last administered on 10/22/16 23:36; Admin Dose 15 UNIT; Start 10/22/16 at 22:49 Diagnostic Test (Pha) (Accu-Chek) 1 ea 02 XX Last administered on 10/23/16 02: 00; Admin Dose 1 EA; Start 10/23/16 at 02:00 Hydromorphone HCl (Dilaudid) 1 mg Q4H PRN IV PAIN Last administered on 11:27; Admin Dose 1 MG; Start 10/23/16 at 07:00 Apixaban (Eliquis) 2.5 mg BID PO Last administered on 10/23/16 11:25; Admin Dose 2.5 MG; Start 10/23/16 at 09:30 Miscellaneous Information (*Order Clarification Bulletin) SEROSTIM...IS NON FORMULARY ITEM...PLE... Q8H XX ; Start 10/23/16 at 17:00 Procedures Procedures PROCEDURE: XR Chest. CLINICAL INDICATION: Chest pain. TECHNIQUE: Single frontal view of the chest was obtained. COMPARISON: Chest x-ray 10/06/2015 05:35 p.m. FINDINGS: The soft tissues are normal. The bony elements are normal. The heart, cardiomediastinal silhouette and hilar structures are normal. The pulmonary vasculature is normal. There is a left-sided aorta. The lungs are clear. The costophrenic angles are normal. IMPRESSION: 1. Stable chest x-ray with no evidence of active cardiopulmonary disease. RPTAT:AAJJ Physician Jose Date Time Electronically viewed and signed by Brent Acharya Physician on 10/22/2016 18:10 SARMAD DAWN MD October 23, 2016 17:05
[2016-10-23] MEDS: DIPHENHYDRAMINE 50 MG INJ IV PRN (17:06)
[2016-10-23] MEDS: ATORVASTATIN 20 MG TAB PO SCH (20:54)
[2016-10-23] MEDS: APIXABAN 5 MG TABLET PO SCH (20:56)
[2016-10-23] MEDS: QUETIAPINE 25 MG TAB PO SCH (20:56)
[2016-10-23] MEDS: INSULIN GLARGINE [LANtus] 3 ML PEN SC SCH (20:59)
[2016-10-23] MEDS ORDERED: INSULIN GLARGINE [LANtus] 3 ML PEN SC SCH (21:00)
[2016-10-23] MEDS ORDERED: NON-FORMULARY/PATIENT OWN MED (Pravastatin Sodium* 80 MG) PO SCH (21:00)
[2016-10-24] VITALS (14 sets, daily range): BP systolic 82–123; BP diastolic 48–70; PULSE 60–64; RESP 17–20
[2016-10-24] MEDS: [UNRECOGNIZED DRUG - REMARK] XX SCH ×2 (01:00→17:52)
[2016-10-24] MEDS: ACCU-CHEK XX SCH (01:05)
[2016-10-24] MEDS: HYDROmorphONE 1 MG/ML SYG IV PRN ×5 (01:16→19:30)
[2016-10-24 06:44] LABS: ADD SCAN DIFF NO
[2016-10-24 06:57] LABS: BASOPHILS % 0.8 % (0.0-2.0); EOSINOPHILS # 0.2 10^3/ul (0.0-0.5); EOSINOPHILS % 3.6 % (0.0-7.0); HEMATOCRIT 30.5 % (42.0-52.0); HEMOGLOBIN 10.2 g/dl (14.0-18.0); LYMPHOCYTES # 1.5 10^3/ul (0.8-2.9); LYMPHOCYTES % 28.4 % (15.0-51.0); MEAN CORPUSCULAR HEMOGLOBIN 34.1 pg (29.0-33.0); MEAN CORPUSCULAR HGB CONC 33.4 g/dl (32.0-37.0); MEAN PLATELET VOLUME 10.9 fl (7.4-10.4); MONOCYTE # 0.6 10^3/ul (0.3-0.9); MONOCYTES % 11.9 % (0.0-11.0); NEUTROPHIL # 2.9 10^3/ul (1.6-7.5); NEUTROPHILS % 54.9 % (39.0-77.0); PLATELET COUNT 218 10^3/UL (140-415); RED BLOOD COUNT 2.99 10^6/ul (4.70-6.10); RED CELL DISTRIBUTION WIDTH 13.5 % (11.5-14.5); WHITE BLOOD COUNT 5.2 10^3/ul (4.8-10.8)
[2016-10-24] MEDS: LEVOTHYROXINE 100 MCG TAB PO SCH (07:00)
[2016-10-24] MEDS: INSULIN ASPART [NOVOLOG] 3 ML PEN SC SCH ×4 (07:30→20:37)
[2016-10-24] MEDS: CREON (24K-76K-120K) 1 CAP PO SCH ×3 (07:35→17:29)
[2016-10-24 07:57] LABS: CALCIUM 9.6 mg/dl (8.4-10.2); CREATININE 7.69 mg/dl (0.61-1.24); POTASSIUM 4.2 mmol/L (3.5-5.1)
[2016-10-24] MEDS: QUETIAPINE 25 MG TAB PO SCH ×2 (09:00→20:38)
[2016-10-24] MEDS: FAMOTIDINE 20 MG TAB PO SCH (09:00)
[2016-10-24] MEDS: FENOFIBRATE 145 MG TAB PO SCH (09:00)
[2016-10-24] MEDS: DONEPEZIL 5 MG TAB PO SCH (09:00)
[2016-10-24] MEDS: DOLUTEGRAVIR SODIUM 50 MG TABLET PO SCH (09:00)
[2016-10-24] MEDS: ABACAVIR 300 MG TAB PO SCH ×2 (09:00→20:37)
[2016-10-24] MEDS: APIXABAN 5 MG TABLET PO SCH ×2 (09:00→20:38)
[2016-10-24] MEDS: morphine (ER) 30 MG TAB PO SCH ×2 (09:00→21:00)
[2016-10-24] MEDS: CYCLOBENZAPRINE 10 MG TAB PO SCH ×3 (09:00→20:38)
[2016-10-24] MEDS: ONDANSETRON 4 MG INJ IV PRN (10:19)
[2016-10-24] MEDS ORDERED: GELATIN SIZE 100 SPONGE ONE (11:45)
[2016-10-24] MEDS ORDERED: THROMBIN 5000 UNIT VIAL ONE (11:45)
[2016-10-24] MEDS ORDERED: LIDOCAINE 1% (STERILE-PAK) 30 ML INJ ONE (11:45)
[2016-10-24] MEDS ORDERED: HEPARIN 1000 UNITS/ML 10 ML INJ ONE ×2 (11:46→13:08)
[2016-10-24] MEDS: ATENOLOL 25 MG TAB PO SCH (11:47)
[2016-10-24] MEDS ORDERED: PROPOFOL 20 ML ONE (12:13)
[2016-10-24] MEDS ORDERED: CEFAZOLIN 1 GM INJ ONE (12:13)
[2016-10-24] MEDS ORDERED: FENTAnyl 50 MCG/ML VIAL ONE (12:13)
[2016-10-24] MEDS ORDERED: MIDAZOLAM 1 MG/ML 2 ML INJ ONE (12:13)
--- NOTE | 2016-10-24 12:17 | HPN ---
Date/Time of Note Date/Time of Note DATE: 10/24/16 TIME: 12:17 Interval H&P Admission Note Pt. seen H&P reviewed: No system changes GUZMAN BEVERLY MD October 24, 2016 12:17
[2016-10-24] MEDS ORDERED: PHENYLephrine (100 MCG/ML) 5ML SYG ONE ×3 (12:41→13:34)
--- NOTE | 2016-10-24 12:53 | OPR ---
Date/Time of Note Date/Time of Note DATE: 10/24/16 TIME: 12:52 Operative Report Procedure Date: October 24, 2016 Preoperative Diagnosis RLE swelling / AVG malfunction Postoperative Diagnosis same Operation Performed ligation right femoral AV graft, placement of right IJ permacath Surgeon: GUZMAN BEVERLY MD Anesthesia: general Estimated Blood Loss: minimal Complications: None Pt Condition Post Procedure: stable GUZMAN BEVERLY MD October 24, 2016 12:53
[2016-10-24] MEDS ORDERED: METOCLOPRAMIDE 10 MG INJ ONE (13:26)
[2016-10-24] MEDS ORDERED: ONDANSETRON 4 MG INJ ONE (13:26)
[2016-10-24] MEDS ORDERED: DEXAMETHASONE 4 MG/ML 1 ML INJ ONE (13:26)
[2016-10-24] MEDS ORDERED: EPHEDrine SULFATE 50 MG/5 ML SYG IV PRN (13:30)
[2016-10-24] MEDS ORDERED: LABETALOL HCL 20MG INJ IV PRN (13:30)
[2016-10-24] MEDS ORDERED: MEPERIDINE 25 MG INJ IV PRN (13:30)
[2016-10-24] MEDS ORDERED: FENTAnyl 50 MCG/ML VIAL IV PRN ×2 (13:30)
[2016-10-24] MEDS ORDERED: morphine (1 MG/ML) 10ML SYRINGE IV PRN ×2 (13:30)
[2016-10-24] MEDS ORDERED: ALBUMIN HUMAN 5% 250 ML IV PRN (13:30)
[2016-10-24] MEDS ORDERED: DIPHENHYDRAMINE 50 MG INJ IV PRN (13:30)
[2016-10-24] MEDS ORDERED: ONDANSETRON 4 MG INJ IV PRN (13:30)
--- NOTE | 2016-10-24 13:59 | RADRPT ---
PROCEDURE: Intraoperative fluoroscopy CLINICAL INDICATION: Perma-Cath placement TECHNIQUE: 5.4 seconds of fluoroscopy time was utilized. 2 Images are submitted for interpretation . COMPARISON: October 22, 2016 FINDINGS: Successful right Perma-Cath placement was performed. The Perma-Cath is ready for use and is in good positioning. There is no pneumothorax. 5.4 seconds of fluoroscopy time used. IMPRESSION: Successful right Perma-Cath placement. The Perma-Cath is ready for use and is in good positioning. No pneumothorax. 5.4 seconds of fluoroscopy time used. RPTAT: EE .Ramona Owens MD, Date Time Electronically viewed and signed by .Ramona Owens MD, on 10/24/2016 13:58 .F/
--- NOTE | 2016-10-24 14:05 | OPR ---
DATE OF OPERATION: 10/24/2016 PREOPERATIVE DIAGNOSIS: Malfunctioning right femoral AV graft with severe right leg edema. POSTOPERATIVE DIAGNOSIS: Malfunctioning right femoral arteriovenous graft with severe right leg jaelyn ma. PROCEDURE PERFORMED: 1. Insertion of right internal jugular vein tunneled hemodialysis catheter. 2. Ligation and revision of right femoral AV graft. SURGEON: Guzman Brandt MD ANESTHESIA: General endotracheal anesthesia. ESTIMATED BLOOD LOSS: Minimal. COMPLICATIONS: No intraprocedural complications. INDICATIONS: This is a 51-year-old gentleman who has end-stage renal disease, had multiple upper ex tremity AV accesses. He has a right femoral AV graft that has been in place for over a year, but he has developed massive edema after it clotted last week, and I declotted it. He has an iliac venous stent which I believe is now occluded, maybe possibly from thrombus from the declotting. The graft is patent. He was dialyzed through the graft yesterday, but he has very severe leg swelling and di scomfort, so I am going to ligate the graft and place a Perm-A-Cath, so he can continue dialysis. DESCRIPTION OF PROCEDURE: Patient was brought to the operating room and placed on the table in supi ne position. After induction of general endotracheal anesthesia, the right leg and right thigh and right neck and chest wall were prepped and draped in the usual sterile fashion. Again, by the place ment of Perm-A-Cath used ultrasound to identify the right internal jugular vein was patent and easil y compressible I then used a micropuncture needle to enter the vein under ultrasound guidance. An 0 .018 wire was inserted through the needle into the vein. Micropuncture sheath was advanced over the wire into the vein. I then advanced 0.035 J-wire down through the heart and into the inferior vena cava, all under fluoroscopic guidance. I then dilated the tract over the wire, leaving the wire in place. I left a large peel away sheath over the wire and in the right atrium. I then made a small incision below the clavicle and tunneled a 23-cm tunneled hemodialysis catheter through the incisio n from the infraclavicular incision to the neck incision. I then placed the end of the catheter thr ough the peel away sheath leaving the tip in the right atrium and then peeled the sheath away. Ther e was good backflow from the sheath and flushed easily. I confirmed that there were no kinks and th ere was a nice gentle curve to catheter in the right atrium. I then closed the neck incision with 4-0 Monocryl suture in a heavy 3-0 nylon sutures used to connec t catheter to the skin. Sterile dressing was applied and 2 mL of 1000 unit/mL heparin was placed in each port. I then directed my attention to the right femoral graft. I used about 10 mL of 1% Xylo kayli to numb up the area over the graft in the upper thigh over the arterial limb of the graft whic h was more lateral. I then made a small incision over the graft transversely and dissected out the graft circumferentially then I used multiple 0 silk ties. I used a total of about 6 of them just to ligate the graft to make sure it was completely ligated with no further flow. There was good hemos tasis. I closed the skin incision in 2 layers using an inner layer of 3-0 Vicryl and an outer layer of 4-0 Monocryl subcuticular sutures. Sterile dressing was applied. Patient was extubated in the operating room and transferred to the recovery room in stable condition. He tolerated the procedure well without any complications. Dictated By: GUZMAN KNIGHT/KOBE Conf#: [id number] DID#: [id number] CC: SARMAD DAWN MD; KRYSTEN BERNSTEIN MD; YASMANI ZENG MD;*End*
--- NOTE | 2016-10-24 15:01 | CONS ---
Date/Time of Note Date/Time of Note DATE: 10/24/16 TIME: 15:01 Assessment/Plan Assessment/Plan Additional Assessment/Plan 51 yo Male with 1. Right leg swelling secondary to recent right femoral arteriovenous graft. 2. End-stage renal disease on dialysis, HD TTS 3. Anemia. Chronic kidney disease. 4. History of HIV. 5. Hypertension. 6. Dyslipidemia. 7. Diabetes. 8. Hypothyroidism. 9. Acute on chronic pain. S/p PC Cont current Rx and pLan, Cont current HD treatment HD TTS Schedule. Renal Diet/ADA Diet Consultation Date/Type/Reason Admit Date/Time October 22, 2016 at 19:44 Initial Consult Date 10/23/16 Type of Consultation: Renal Referring Provider: CORDELIA CHAVARRIA 24 HR Interval Summary Free Text/Dictation S/p PC Exam/Review of Systems Vital Signs Vitals Vital Signs Date Time Temp Pulse Resp B/P Pulse Ox O2 Delivery O2 Flow Rate FiO2 10/24/16 14:05 62 17 94/51 99 2.0 10/24/16 14:00 Nasal Cannula 10/24/16 13:51 98.3 Intake and Output 10/23/16 10/23/16 10/24/16 15:00 23:00 07:00 Intake Total 1580 ml 300 ml Output Total 2300 ml Balance -720 ml 300 ml Exam Constitutional: No distress ENMT: mucosa pink and moist Respiratory: crackles/rales Cardiovascular: edema Gastrointestinal: soft Neurological: No confused, No lethargic Results Result Diagram: 10/24/16 0550 10/24/16 0550 Results 24 hrs Laboratory Tests Test 10/23/16 17:15 10/23/16 20:53 10/24/16 01:21 10/24/16 05:50 Bedside Glucose 172 239 H 182 White Blood Count 5.2 Red Blood Count 2.99 L Hemoglobin 10.2 L Hematocrit 30.5 L Mean Corpuscular Volume 102.0 H Mean Corpuscular Hemoglobin 34.1 H Mean Corpuscular Hemoglobin Concent 33.4 Red Cell Distribution Width 13.5 Platelet Count 218 Mean Platelet Volume 10.9 H Neutrophils % 54.9 Lymphocytes % 28.4 Monocytes % 11.9 H Eosinophils % 3.6 Basophils % 0.8 Nucleated Red Blood Cells % 0.0 Neutrophils # 2.9 Lymphocytes # 1.5 Monocytes # 0.6 Eosinophils # 0.2 Basophils # 0.0 Nucleated Red Blood Cells # 0.0 Sodium Level 135 Potassium Level 4.2 Chloride Level 95 L Carbon Dioxide Level 29 Anion Gap 15 # Blood Urea Nitrogen 61 H Creatinine 7.69 #H Glucose Level 158 Calcium Level 9.6 Test 10/24/16 08:52 10/24/16 11:46 Bedside Glucose 199 171 Medications Medications Current Medications Abacavir Sulfate (Ziagen) 300 mg BID PO Last administered on 10/23/16 20:55; Admin Dose 300 MG; Start 10/23/16 at 09:00 Atenolol (Tenormin) 25 mg DAILY PO Last administered on 10/24/16 11:47; Admin Dose 25 MG; Start 10/23/16 at 09:00 Cyclobenzaprine HCl (Flexeril) 20 mg TID PO Last administered on 10/23/16 20: 56; Admin Dose 20 MG; Start 10/23/16 at 09:00 Dolutegravir Sodium (Tivicay) 50 mg DAILY PO Last administered on 10/23/16 08: 22; Admin Dose 50 MG; Start 10/23/16 at 09:00 Emtricitabine (Emtriva) 200 mg Q96H PO ; Start 10/22/16 at 21:30 Fenofibrate (Tricor) 145 mg DAILY PO Last administered on 10/23/16 08:22; Admin Dose 145 MG; Start 10/23/16 at 09:00 Morphine Sulfate (Ms Contin (Er)) 60 mg Q12 PO Last administered on 10/23/16 21:55; Admin Dose 60 MG; Start 10/22/16 at 21:30 Oxycodone HCl (Roxicodone) 30 mg Q4H PRN PO PAIN; Start 10/22/16 at 21:30 Quetiapine Fumarate (Seroquel) 25 mg BID PO ; Start 10/23/16 at 21:00 Miscellaneous Information 6 mg DAILY XX ; Start 10/23/16 at 09:00; Status UNV Famotidine (Pepcid) 20 mg DAILY PO Last administered on 10/23/16 08:22; Admin Dose 20 MG; Start 10/23/16 at 09:00 Miscellaneous Information 1 ea NOTE XX ; Start 10/22/16 at 22:00 Glucose (Glutose) 15 gm Q15M PRN PO DECREASED GLUCOSE; Start 10/22/16 at 22:00 Glucose (Glutose) 22.5 gm Q15M PRN PO DECREASED GLUCOSE; Start 10/22/16 at 22: 00 Dextrose (D50w Syringe) 25 ml Q15M PRN IV DECREASED GLUCOSE; Start 10/22/16 at 22:00 Dextrose (D50w Syringe) 50 ml Q15M PRN IV DECREASED GLUCOSE; Start 10/22/16 at 22:00 Glucagon (Glucagen) 1 mg Q15M PRN IM DECREASED GLUCOSE; Start 10/22/16 at 22:00 Glucose (Glutose) 15 gm Q15M PRN BUCCAL DECREASED GLUCOSE; Start 10/22/16 at 22 :00 Alprazolam (Xanax) 2 mg TID PRN PO ANXIETY Last administered on 10/22/16 23:47 ; Admin Dose 2 MG; Start 10/22/16 at 22:00 Atorvastatin Calcium (Lipitor) 20 mg DAILY@21 PO Last administered on 20:54; Admin Dose 20 MG; Start 10/23/16 at 21:00 Ondansetron HCl (Zofran Inj) 4 mg Q6H PRN IV NAUSEA AND/OR VOMITING Last administered on 10/24/16 10:19; Admin Dose 4 MG; Start 10/22/16 at 22:30 Donepezil HCl (Aricept) 5 mg DAILY PO Last administered on 10/23/16 08:23; Admin Dose 5 MG; Start 10/23/16 at 09:00 Morphine Sulfate (morphine) 4 mg Q4H PRN IV PAIN Last administered on 04:33; Admin Dose 4 MG; Start 10/22/16 at 23:00 Insulin Glargine (Lantus) 15 unit QHS SC Last administered on 10/23/16 20:59; Admin Dose 15 UNIT; Start 10/22/16 at 22:49 Diagnostic Test (Pha) (Accu-Chek) 1 ea 02 XX Last administered on 10/23/16 02: 00; Admin Dose 1 EA; Start 10/23/16 at 02:00 Hydromorphone HCl (Dilaudid) 1 mg Q4H PRN IV PAIN Last administered on 10:15; Admin Dose 1 MG; Start 10/23/16 at 07:00 Miscellaneous Information (*Order Clarification Bulletin) SEROSTIM...IS NON FORMULARY ITEM...PLE... Q8H XX ; Start 10/23/16 at 17:00 Apixaban (Eliquis) 2.5 mg BID PO Last administered on 10/23/16t 20:56; Admin Dose 2.5 MG; Start 10/23/16 at 21:00 SARMAD DAWN MD October 24, 2016 15:01
[2016-10-24] MEDS: morphine 4 MG/ML VIAL IV PRN (15:18)
--- NOTE | 2016-10-24 16:51 | RADRPT ---
PROCEDURE: Bilateral hip series CLINICAL INDICATION: FALL TECHNIQUE: AP and frog lateral views of the right and left hips were performed. COMPARISON: None. FINDINGS: There are surgical clips involving the right inguinal region. There are no acute fractures or dislo cations involving either hip. There is mild degenerative joint disease of the hips. The bony land leasing examiner alization is normal without focal bony blastic or lytic lesions. The soft tissues are otherwise unr emarkable. IMPRESSION: 1. 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 RPTAT:AAJJ Physician Yasmine Date Time Electronically viewed and signed by Physician Yasmine on 10/24/2016 16:51 /
--- NOTE | 2016-10-24 16:52 | RADRPT ---
PROCEDURE: Pelvic study CLINICAL INDICATION: Trauma TECHNIQUE: AP pelvis COMPARISON: Bilateral hip series same day FINDINGS: There is surgical clips in the right inguinal region. No evidence of acute fractures or dislocation s. There is mild degenerative joint disease of both hips. No focal bony blastic or lytic lesions. There is a stent seen along the right common iliac vessels. IMPRESSION: 1. Mild degenerate joint disease of the hips without evidence of acute fractures or dislocations. 2. Postoperative changes as above. RPTAT:AAJJ Physician Yasmine Date Time Electronically viewed and signed by Faustino Meléndez Physician on 10/24/2016 16:52 BM/
--- NOTE | 2016-10-24 16:54 | RADRPT ---
PROCEDURE: Right leg series CLINICAL INDICATION: Postop TECHNIQUE: AP and lateral views of the right leg were obtained COMPARISON: None FINDINGS: There is external dressing present. There is a catheter extending along the anterior lateral distal right leg. No acute fractures or dislocations. The bony mineralization is normal. No focal bony blastic or lytic lesions or erosions or periostitis. IMPRESSION: 1. No evidence of fractures dislocations or erosions. 2. No plain imaging evidence of osteomyelitis. RPTAT:AAJJ Physician Yasmine Date Time Electronically viewed and signed by Faustino Meléndez Physician on 10/24/2016 16:54 BM/
--- NOTE | 2016-10-24 17:24 | PN ---
Date/Time of Note Date/Time of Note DATE: 10/24/16 TIME: 17:22 Assessment/Plan VTE Prophylaxis VTE Prophylaxis Intervention: other (eliquis) Lines/Catheters IV C[facility]ter Type ([facility] Peripheral IV Urinary Cath still in place: No Assessment/Plan Chief Complaint/Hosp Course Assessment and plan 1. Right leg swelling secondary to recent right femoral arteriovenous graft. Vascular surgeon following s/p AV graft ligation and placement of permacath. Continue with analgesics. Dialysis per molder operator. 2. End-stage renal disease on dialysis. Monitor for electrolyte disturbances. L D Rn consulted. cont no HD 3. Anemia. Likely of chronic kidney disease. Stable at present. Will monitor for now. 4. History of HIV. Patient resumed on his HIV medications. Of note CD4 count of around 700 was reported per patient 5. Hypertension. Continue antihypertensives and adjust as needed 6. Dyslipidemia. Continue statin medication 7. Diabetes. Patient resumed on his insulin regimen. We will follow-up on A1c. 8. Hypothyroidism. Continue on Synthroid medication Disposition and plan: s/p AV graft ligation and placement of permacath. cont on HD. d/c when cleared by consultants Discussed plan of care with Dr. Cronin Problems: Subjective 24 Hr Interval Summary Free Text/Dictation no apparent distress. comfortable at present Exam/Review of Systems Vital Signs Vitals Vital Signs Date Time Temp Pulse Resp B/P Pulse Ox O2 Delivery O2 Flow Rate FiO2 10/24/16 14:05 62 17 94/51 99 2.0 10/24/16 14:00 Nasal Cannula 10/24/16 13:51 98.3 Intake and Output 10/23/16 10/23/16 10/24/16 15:00 23:00 07:00 Intake Total 1580 ml 300 ml Output Total 2300 ml Balance -720 ml 300 ml Exam Constitutional: alert, oriented Psych: nl mood/affect Head: normocephalic Neck: supple, No jvd Respiratory: clear to auscultation, normal air movement Cardiovascular: regular rate and rhythm Gastrointestinal: non-tender, soft Musculoskeletal: swelling (Right lower extremity) Neurological: DRIVER TRAINEE II-XII intact, nl mental status, nl speech Results Result Diagram: 10/24/16 0550 10/24/16 0550 Results 24 hrs Laboratory Tests Test 10/23/16 20:53 10/24/16 01:21 10/24/16 05:50 10/24/16 08:52 Bedside Glucose 239 H 182 199 White Blood Count 5.2 Red Blood Count 2.99 L Hemoglobin 10.2 L Hematocrit 30.5 L Mean Corpuscular Volume 102.0 H Mean Corpuscular Hemoglobin 34.1 H Mean Corpuscular Hemoglobin Concent 33.4 Red Cell Distribution Width 13.5 Platelet Count 218 Mean Platelet Volume 10.9 H Neutrophils % 54.9 Lymphocytes % 28.4 Monocytes % 11.9 H Eosinophils % 3.6 Basophils % 0.8 Nucleated Red Blood Cells % 0.0 Neutrophils # 2.9 Lymphocytes # 1.5 Monocytes # 0.6 Eosinophils # 0.2 Basophils # 0.0 Nucleated Red Blood Cells # 0.0 Sodium Level 135 Potassium Level 4.2 Chloride Level 95 L Carbon Dioxide Level 29 Anion Gap 15 # Blood Urea Nitrogen 61 H Creatinine 7.69 #H Glucose Level 158 Calcium Level 9.6 Test 10/24/16 11:46 Bedside Glucose 171 Medications Medications Current Medications Abacavir Sulfate (Ziagen) 300 mg BID PO Last administered on 10/23/16 20:55; Admin Dose 300 MG; Start 10/23/16 at 09:00 Atenolol (Tenormin) 25 mg DAILY PO Last administered on 10/24/16 11:47; Admin Dose 25 MG; Start 10/23/16 at 09:00 Cyclobenzaprine HCl (Flexeril) 20 mg TID PO Last administered on 10/24/16 15: 18; Admin Dose 20 MG; Start 10/23/16 at 09:00 Dolutegravir Sodium (Tivicay) 50 mg DAILY PO Last administered on 10/23/16 08: 22; Admin Dose 50 MG; Start 10/23/16 at 09:00 Emtricitabine (Emtriva) 200 mg Q96H PO ; Start 10/22/16 at 21:30 Fenofibrate (Tricor) 145 mg DAILY PO Last administered on 10/23/16 08:22; Admin Dose 145 MG; Start 10/23/16 at 09:00 Morphine Sulfate (Ms Contin (Er)) 60 mg Q12 PO Last administered on 10/23/16 21:55; Admin Dose 60 MG; Start 10/22/16 at 21:30 Oxycodone HCl (Roxicodone) 30 mg Q4H PRN PO PAIN; Start 10/22/16 at 21:30 Quetiapine Fumarate (Seroquel) 25 mg BID PO ; Start 10/23/16 at 21:00 Miscellaneous Information 6 mg DAILY XX ; Start 10/23/16 at 09:00; Status UNV Famotidine (Pepcid) 20 mg DAILY PO Last administered on 10/23/16 08:22; Admin Dose 20 MG; Start 10/23/16 at 09:00 Miscellaneous Information 1 ea NOTE XX ; Start 10/22/16 at 22:00 Glucose (Glutose) 15 gm Q15M PRN PO DECREASED GLUCOSE; Start 10/22/16 at 22:00 Glucose (Glutose) 22.5 gm Q15M PRN PO DECREASED GLUCOSE; Start 10/22/16 at 22: 00 Dextrose (D50w Syringe) 25 ml Q15M PRN IV DECREASED GLUCOSE; Start 10/22/16 at 22:00 Dextrose (D50w Syringe) 50 ml Q15M PRN IV DECREASED GLUCOSE; Start 10/22/16 at 22:00 Glucagon (Glucagen) 1 mg Q15M PRN IM DECREASED GLUCOSE; Start 10/22/16 at 22:00 Glucose (Glutose) 15 gm Q15M PRN BUCCAL DECREASED GLUCOSE; Start 10/22/16 at 22 :00 Alprazolam (Xanax) 2 mg TID PRN PO ANXIETY Last administered on 10/22/16 23:47 ; Admin Dose 2 MG; Start 10/22/16 at 22:00 Atorvastatin Calcium (Lipitor) 20 mg DAILY@21 PO Last administered on 20:54; Admin Dose 20 MG; Start 10/23/16 at 21:00 Ondansetron HCl (Zofran Inj) 4 mg Q6H PRN IV NAUSEA AND/OR VOMITING Last administered on 10/24/16 10:19; Admin Dose 4 MG; Start 10/22/16 at 22:30 Donepezil HCl (Aricept) 5 mg DAILY PO Last administered on 10/23/16 08:23; Admin Dose 5 MG; Start 10/23/16 at 09:00 Morphine Sulfate (morphine) 4 mg Q4H PRN IV PAIN Last administered on 04:33; Admin Dose 4 MG; Start 10/22/16 at 23:00 Insulin Glargine (Lantus) 15 unit QHS SC Last administered on 10/23/16 20:59; Admin Dose 15 UNIT; Start 10/22/16 at 22:49 Diagnostic Test (Pha) (Accu-Chek) 1 ea 02 XX Last administered on 10/23/16 02: 00; Admin Dose 1 EA; Start 10/23/16 at 02:00 Hydromorphone HCl (Dilaudid) 1 mg Q4H PRN IV PAIN Last administered on 15:24; Admin Dose 1 MG; Start 10/23/16 at 07:00 Miscellaneous Information (*Order Clarification Bulletin) SEROSTIM...IS NON FORMULARY ITEM...PLE... Q8H XX ; Start 10/23/16 at 17:00 Apixaban (Eliquis) 2.5 mg BID PO Last administered on 10/23/16 20:56; Admin Dose 2.5 MG; Start 10/23/16 at 21:00 CORDELIA CHAVARRIA October 24, 2016 17:24
[2016-10-24] MEDS: INSULIN GLARGINE [LANtus] 3 ML PEN SC SCH (20:36)
[2016-10-24] MEDS: ALPRAZOLAM 0.25 MG TAB PO PRN (20:39)
[2016-10-24] MEDS: ATORVASTATIN 20 MG TAB PO SCH (20:39)
[2016-10-25] VITALS (8 sets, daily range): BP systolic 109–151; BP diastolic 50–77; PULSE 72–79; RESP 18
[2016-10-25] MEDS: ACCU-CHEK XX SCH (01:39)
[2016-10-25] MEDS: HYDROmorphONE 1 MG/ML SYG IV PRN ×3 (01:40→12:02)
[2016-10-25 06:14] LABS: ADD SCAN DIFF NO
[2016-10-25 06:27] LABS: BASOPHILS % 0.3 % (0.0-2.0); EOSINOPHILS % 0.4 % (0.0-7.0); HEMATOCRIT 30.2 % (42.0-52.0); HEMOGLOBIN 9.9 g/dl (14.0-18.0); LYMPHOCYTES # 1.6 10^3/ul (0.8-2.9); LYMPHOCYTES % 20.3 % (15.0-51.0); MEAN CORPUSCULAR HEMOGLOBIN 33.8 pg (29.0-33.0); MEAN CORPUSCULAR HGB CONC 32.8 g/dl (32.0-37.0); MEAN CORPUSCULAR VOLUME 103.1 fl (82.0-101.0); MEAN PLATELET VOLUME 11.2 fl (7.4-10.4); MONOCYTE # 0.6 10^3/ul (0.3-0.9); MONOCYTES % 7.2 % (0.0-11.0); NEUTROPHIL # 5.6 10^3/ul (1.6-7.5); NEUTROPHILS % 71.4 % (39.0-77.0); PLATELET COUNT 238 10^3/UL (140-415); RED BLOOD COUNT 2.93 10^6/ul (4.70-6.10); RED CELL DISTRIBUTION WIDTH 13.4 % (11.5-14.5); WHITE BLOOD COUNT 7.8 10^3/ul (4.8-10.8)
[2016-10-25 07:06] LABS: CALCIUM 9.4 mg/dl (8.4-10.2); CREATININE 9.01 mg/dl (0.61-1.24)
[2016-10-25] MEDS: INSULIN ASPART [NOVOLOG] 3 ML PEN SC SCH ×2 (07:30→11:30)
[2016-10-25] MEDS: ONDANSETRON 4 MG INJ IV PRN (08:48)
[2016-10-25] MEDS: DIPHENHYDRAMINE 50 MG INJ IV PRN (08:48)
[2016-10-25] MEDS: FENOFIBRATE 145 MG TAB PO SCH (09:00)
[2016-10-25] MEDS: QUETIAPINE 25 MG TAB PO SCH (09:00)
[2016-10-25] MEDS: ABACAVIR 300 MG TAB PO SCH (09:00)
[2016-10-25] MEDS: DONEPEZIL 5 MG TAB PO SCH (09:00)
[2016-10-25] MEDS: DOLUTEGRAVIR SODIUM 50 MG TABLET PO SCH (09:00)
[2016-10-25] MEDS: CYCLOBENZAPRINE 10 MG TAB PO SCH ×2 (09:00→13:00)
[2016-10-25] MEDS: ATENOLOL 25 MG TAB PO SCH (09:00)
--- NOTE | 2016-10-25 09:17 | CONS ---
Date/Time of Note Date/Time of Note DATE: 10/25/16 TIME: 09:16 Assessment/Plan Assessment/Plan Additional Assessment/Plan 51 yo Male with 1. Right leg swelling secondary to recent right femoral arteriovenous graft. 2. End-stage renal disease on dialysis, HD TTS 3. Anemia. Chronic kidney disease. 4. History of HIV. 5. Hypertension. 6. Dyslipidemia. 7. Diabetes. 8. Hypothyroidism. 9. Acute on chronic pain. S/p PC Cont current HD treatment HD TTS Schedule. Renal Diet/ADA Diet DC planning Consultation Date/Type/Reason Admit Date/Time October 24, 2016 at 18:15 Initial Consult Date 10/23/16 Type of Consultation: Renal Referring Provider: CORDELIA CHAVARRIA 24 HR Interval Summary Free Text/Dictation On HD, No new complaints Exam/Review of Systems Vital Signs Vitals Vital Signs Date Time Temp Pulse Resp B/P Pulse Ox O2 Delivery O2 Flow Rate FiO2 10/25/16 07:50 98.8 90 18 138/76 93 10/24/16 14:30 2.0 10/24/16 14:00 Nasal Cannula Intake and Output 10/24/16 10/24/16 10/25/16 15:00 23:00 07:00 Intake Total 300 ml 600 ml 920 ml Output Total 5 ml Balance 295 ml 600 ml 920 ml Exam Constitutional: No distress ENMT: mucosa pink and moist Respiratory: No labored breathing Cardiovascular: edema Gastrointestinal: soft Neurological: LADLE PULLER II-XII intact, No lethargic Results Result Diagram: 10/25/16 0500 10/25/16 0500 Results 24 hrs Laboratory Tests Test 10/24/16 11:46 10/24/16 17:28 10/24/16 20:34 10/25/16 01:44 Bedside Glucose 171 248 H 252 H 248 H Test 10/25/16 05:00 10/25/16 08:01 White Blood Count 7.8 # Red Blood Count 2.93 L Hemoglobin 9.9 L Hematocrit 30.2 L Mean Corpuscular Volume 103.1 H Mean Corpuscular Hemoglobin 33.8 H Mean Corpuscular Hemoglobin Concent 32.8 Red Cell Distribution Width 13.4 Platelet Count 238 Mean Platelet Volume 11.2 H Neutrophils % 71.4 Lymphocytes % 20.3 Monocytes % 7.2 Eosinophils % 0.4 Basophils % 0.3 Nucleated Red Blood Cells % 0.0 Neutrophils # 5.6 Lymphocytes # 1.6 Monocytes # 0.6 Eosinophils # 0.0 Basophils # 0.0 Nucleated Red Blood Cells # 0.0 Sodium Level 136 Potassium Level 5.0 Chloride Level 100 Carbon Dioxide Level 21 Anion Gap 20 H Blood Urea Nitrogen 74 H Creatinine 9.01 H Glucose Level 166 Hemoglobin A1c 7.7 H Calcium Level 9.4 Bedside Glucose 139 Medications Medications Current Medications Abacavir Sulfate (Ziagen) 300 mg BID PO Last administered on 10/24/16 20:37; Admin Dose 300 MG; Start 10/23/16 at 09:00 Atenolol (Tenormin) 25 mg DAILY PO Last administered on 10/24/16 11:47; Admin Dose 25 MG; Start 10/23/16 at 09:00 Cyclobenzaprine HCl (Flexeril) 20 mg TID PO Last administered on 10/24/16 20: 38; Admin Dose 20 MG; Start 10/23/16 at 09:00 Dolutegravir Sodium (Tivicay) 50 mg DAILY PO Last administered on 10/23/16 08: 22; Admin Dose 50 MG; Start 10/23/16 at 09:00 Emtricitabine (Emtriva) 200 mg Q96H PO ; Start 10/22/16 at 21:30 Fenofibrate (Tricor) 145 mg DAILY PO Last administered on 10/23/16 08:22; Admin Dose 145 MG; Start 10/23/16 at 09:00 Morphine Sulfate (Ms Contin (Er)) 60 mg Q12 PO Last administered on 10/23/16 21:55; Admin Dose 60 MG; Start 10/22/16 at 21:30 Oxycodone HCl (Roxicodone) 30 mg Q4H PRN PO PAIN; Start 10/22/16 at 21:30 Quetiapine Fumarate (Seroquel) 25 mg BID PO ; Start 10/23/16 at 21:00 Famotidine (Pepcid) 20 mg DAILY PO Last administered on 10/23/16 08:22; Admin Dose 20 MG; Start 10/23/16 at 09:00 Miscellaneous Information 1 ea NOTE XX ; Start 10/22/16 at 22:00 Glucose (Glutose) 15 gm Q15M PRN PO DECREASED GLUCOSE; Start 10/22/16 at 22:00 Glucose (Glutose) 22.5 gm Q15M PRN PO DECREASED GLUCOSE; Start 10/22/16 at 22: 00 Dextrose (D50w Syringe) 25 ml Q15M PRN IV DECREASED GLUCOSE; Start 10/22/16 at 22:00 Dextrose (D50w Syringe) 50 ml Q15M PRN IV DECREASED GLUCOSE; Start 10/22/16 at 22:00 Glucagon (Glucagen) 1 mg Q15M PRN IM DECREASED GLUCOSE; Start 10/22/16 at 22:00 Glucose (Glutose) 15 gm Q15M PRN BUCCAL DECREASED GLUCOSE; Start 10/22/16 at 22 :00 Alprazolam (Xanax) 2 mg TID PRN PO ANXIETY Last administered on 10/24/16 20:39 ; Admin Dose 2 MG; Start 10/22/16 at 22:00 Atorvastatin Calcium (Lipitor) 20 mg DAILY@21 PO Last administered on 20:39; Admin Dose 20 MG; Start 10/23/16 at 21:00 Ondansetron HCl (Zofran Inj) 4 mg Q6H PRN IV NAUSEA AND/OR VOMITING Last administered on 10/25/16 08:48; Admin Dose 4 MG; Start 10/22/16 at 22:30 Donepezil HCl (Aricept) 5 mg DAILY PO Last administered on 10/23/16 08:23; Admin Dose 5 MG; Start 10/23/16 at 09:00 Morphine Sulfate (morphine) 4 mg Q4H PRN IV PAIN Last administered on 04:33; Admin Dose 4 MG; Start 10/22/16 at 23:00 Insulin Glargine (Lantus) 15 unit QHS SC Last administered on 10/24/16 20:36; Admin Dose 15 UNIT; Start 10/22/16 at 22:49 Diagnostic Test (Pha) (Accu-Chek) 1 ea 02 XX Last administered on 10/23/16 02: 00; Admin Dose 1 EA; Start 10/23/16 at 02:00 Hydromorphone HCl (Dilaudid) 1 mg Q4H PRN IV PAIN Last administered on 05:52; Admin Dose 1 MG; Start 10/23/16 at 07:00 Apixaban (Eliquis) 2.5 mg BID PO Last administered on 10/24/16t 20:38; Admin Dose 2.5 MG; Start 10/23/16 at 21:00 SARMAD DAWN MD October 25, 2016 09:17
[2016-10-25] MEDS: CREON (24K-76K-120K) 1 CAP PO SCH ×2 (11:30→12:09)
[2016-10-25] MEDS: LEVOTHYROXINE 100 MCG TAB PO SCH (12:09)
[2016-10-25] MEDS: APIXABAN 5 MG TABLET PO SCH (12:09)
[2016-10-25] MEDS: morphine (ER) 30 MG TAB PO SCH (12:09)
[2016-10-25] MEDS: FAMOTIDINE 20 MG TAB PO SCH (12:10)
--- NOTE | 2016-10-25 12:22 | PN ---
Date/Time of Note Date/Time of Note DATE: 10/25/16 TIME: 12:20 Assessment/Plan Lines/Catheters IV Catheter Type (from Nrs): Perma cath López in Place (from Nrs): No Assessment/Plan Assessment/Plan Doing well s/p ligation R femoral AVG and permacath placement Discharge home f/u with me in the office in 2 weeks Continue Eliquis 2.5 mg PO bid Subjective 24 Hr Interval Summary No c/o except he wants to go home. Had dialysis today through permacath w/o problem. Exam/Review of Systems Vital Signs Vitals Vital Signs Date Time Temp Pulse Resp B/P Pulse Ox O2 Delivery O2 Flow Rate FiO2 10/25/16 11:15 77 10/25/16 11:15 16 10/25/16 07:50 98.8 138/76 93 10/24/16 14:30 2.0 10/24/16 14:00 Nasal Cannula Intake and Output 10/24/16 10/24/16 10/25/16 15:00 23:00 07:00 Intake Total 300 ml 600 ml 920 ml Output Total 5 ml Balance 295 ml 600 ml 920 ml Exam Free Text/Dictation R neck permacath in place, no bleeding. R leg edema is greatly reduced, 2+ DP pulse, toes are warm and pink, VENTURA hose in place Results Result Diagram: 10/25/16 0500 10/25/16 0500 GUZMAN BEVERLY MD October 25, 2016 12:22
--- NOTE | 2016-10-25 14:02 | DS ---
Date/Time of Note Date/Time of Note DATE: 10/25/16 TIME: 13:59 Discharge Summary Admission/Discharge Info Admit Date/Time October 24, 2016 at 18:15 Discharge Date/Time October 25, 2016 at 13:30 Final Diagnosis 1. Right leg swelling secondary to recent right femoral arteriovenous graft. 2. End-stage renal disease on dialysis. 3. Anemia. 4. History of HIV. 5. Hypertension. 6. Dyslipidemia. 7. Diabetes. 8. Hypothyroidism. Patient Condition: Fair Consults 1. Dr. Jason Brandt 2. Dr. Mark Woodard Hospital Course Patient left AGAINST MEDICAL ADVICE. Patient left prior to proper discharge instructions and medication prescription is given. Patient advised to about consequences of medical noncompliance. Patient still left AMA Home Meds Reported Medications Emtricitabine* (Emtriva*) 200 Mg Cap, 200 MG PO Q96H, CAP 10/22/16 Dolutegravir Sodium (Tivicay) 50 Mg Tablet, 50 MG PO DAILY, TAB 10/22/16 Ufqisx-Ommdmodj-Bznloxf* (Qasim DR* 24,000) 24,000 L-76,000-120,000 Unit Capsule.dr, 1 CAP PO WITH MEALS, CAP 10/22/16 Apixaban* (Eliquis*) 2.5 Mg Tablet, 2.5 MG PO BID, TAB 10/22/16 Fenofibrate Nanocrystallized* (Fenofibrate*) 145 Mg Tablet, 145 MG PO DAILY, TAB 10/22/16 Pravastatin Sodium* (Pravastatin Sodium*) 80 Mg Tablet, 80 MG PO HS, TAB 10/22/16 Esomeprazole Mag Trihydrate (Nexium) 40 Mg Capsule.dr, 40 MG PO DAILY, #30 CAP 10/22/16 Oxycodone Hcl* (IR) (Oxycodone Hcl*) 30 Mg Tablet, 30 MG PO Q4H Y for PAIN, TAB 10/22/16 Abacavir* (Abacavir*) 300 Mg Tablet, 300 MG PO BID, #60 TAB 10/22/16 Quetiapine Fumarate* (Quetiapine Fumarate*) 25 Mg Tablet, 25 MG PO BID, TAB 10/22/16 Donepezil* (Aricept*) 5 Mg Tablet, 5 MG PO DAILY, TAB 10/22/16 Somatropin (Serostim) 6 Mg Soln, 6 MG SQ DAILY, VIAL 10/22/16 Atenolol* (Atenolol*) 25 Mg Tablet, 25 MG PO DAILY, #30 TAB 10/22/16 Ranitidine Hcl* (Ranitidine Hcl*) 300 Mg Tablet, 300 MG PO HS, #30 TAB 10/22/16 Levothyroxine Sodium* (Levothyroxine Sodium*) 100 Mcg Tablet, 100 MCG PO BEFORE BREAKFAST, #30 TAB 10/22/16 Cyclobenzaprine Hcl* (Cyclobenzaprine Hcl*) 10 Mg Tablet, 20 MG PO TID, #60 TAB 10/22/16 Morphine Sulfate* (Ms Contin*) 60 Mg Tablet.sa, 60 MG PO Q12, TAB.SA 10/22/16 Insulin Lispro (Humalog) 100 Unit/1 Ml Cartridge, 0 SQ SLIDING SCALE DEPENDS HOW MUCH BSIS HIGH 10/22/16 Insulin Glargine* (Lantus*) 100 Unit/Ml Soln, 15 UNIT SC QHS, #1 VIAL 10/22/16 Alprazolam* (Xanax*) 2 Mg Tablet, 2 MG PO TID Y for ANXIETY, TAB 10/22/16 Discontinued Reported Medications Temazepam* (Restoril*) 30 Mg Capsule, 30 MG PO HS Y for INSOMNIA, CAP 10/06/15 Lorazepam* (Ativan*) 2 Mg Tablet, 2 MG PO Q6 Y for ANXIETY, #60 TAB 10/06/15 Multivitamins (Multiple Vitamin) 1 Tab Tablet, 1 TAB PO DAILY, TAB 05/06/15 Losartan Potassium* (Cozaar*) 50 Mg Tablet, 50 MG PO DAILY, TAB 05/06/15 Atenolol* (Atenolol*) 100 Mg Tablet, 100 MG PO DAILY, TAB 05/06/15 Levothyroxine Sodium* (Levothyroxine Sodium*) 50 Mcg Tablet, 50 MCG PO AC BREAKFAST, TAB 02/04/15 Emtricitabine* (Emtriva*) 200 Mg Cap, 200 MG PO DAILY 11/02/12 Ondansetron Hcl* (Zofran*) 8 Mg Tab, 8 MG PO Q6 Y 11/01/12 Oxycodone Hcl* (Oxycontin*) 30 Mg Tab.sr.12h, 30 MG PO Y 11/01/12 Donepezil* (Aricept* ODT) 10 Mg/Udtablet Tab.rapdis, 10 MG PO DAILY 11/01/12 Escitalopram Oxalate* (Lexapro*) 20 Mg Tablet, 20 MG PO DAILY 11/01/12 Raltegravir Potassium* (Isentress*) 400 Mg Tablet, 400 MG PO BID 11/01/12 Albuterol Sulfate* (Albuterol Sulfate* Neb) 20 Ml Nebu, 20 ML IH BID 04/21/12 Discontinued Scripts Pantoprazole* (Pantoprazole*) 40 Mg Tablet.dr, 40 MG PO BID for 30 Days, TAB Prov:JASON SRINIVASAN NP 03/25/15 Benazepril Hcl* (Benazepril Hcl*) 10 Mg Tab, 10 MG PO BID for 30 Days Prov:JEREMY BROWN 02/13/15 Sucralfate* (Carafate*) 1 Gm/10 Ml Susp, 1 GM PO QID for 30 Days Prov:JEREMY BROWN 02/13/15 Alprazolam* (Xanax*) 1 Mg Tab, 1 MG PO HS Y for anxiety for 30 Days, TAB Prov:JEREMY BROWN 02/13/15 Amlodipine Besylate* (Norvasc*) 10 Mg Tab, 10 MG PO DAILY for 30 Days Prov:JEREMY BROWN 02/13/15 Primary Care Provider Angelito Martinez Pending Labs Laboratory Tests Test 10/24/16 17:28 10/24/16 20:34 10/25/16 01:44 10/25/16 05:00 Bedside Glucose 248mg/dL (70-220) 252mg/dL (70-220) 248mg/dL (70-220) White Blood Count 7.810^3/ul (4.8-10.8) Red Blood Count 2.9310^6/ul (4.70-6.10) Hemoglobin 9.9g/dl (14.0-18.0) Hematocrit 30.2% (42.0-52.0) Mean Corpuscular Volume 103.1fl (82.0-101.0) Mean Corpuscular Hemoglobin 33.8pg (29.0-33.0) Mean Corpuscular Hemoglobin Concent 32.8g/dl (32.0-37.0) Red Cell Distribution Width 13.4% (11.5-14.5) Platelet Count 44189^3/UL (140-415) Mean Platelet Volume 11.2fl (7.4-10.4) Neutrophils % 71.4% (39.0-77.0) Lymphocytes % 20.3% (15.0-51.0) Monocytes % 7.2% (0.0-11.0) Eosinophils % 0.4% (0.0-7.0) Basophils % 0.3% (0.0-2.0) Nucleated Red Blood Cells % 0.0/100WBC (0.0-0.0) Neutrophils # 5.610^3/ul (1.6-7.5) Lymphocytes # 1.610^3/ul (0.8-2.9) Monocytes # 0.610^3/ul (0.3-0.9) Eosinophils # 0.010^3/ul (0.0-0.5) Basophils # 0.010^3/ul (0.0-0.1) Nucleated Red Blood Cells # 0.010^3/ul (0.0-0.0) Sodium Level 136mmol/L (135-144) Potassium Level 5.0mmol/L (3.5-5.1) Chloride Level 100mmol/L (97-110) Carbon Dioxide Level 21mmol/L (21-31) Anion Gap 20 (8-16) Blood Urea Nitrogen 74mg/dl (7-20) Creatinine 9.01mg/dl (0.61-1.24) Glucose Level 166mg/dl (70-220) Hemoglobin A1c 7.7% (0-5.9) Calcium Level 9.4mg/dl (8.4-10.2) Test 10/25/16 08:01 Bedside Glucose 139mg/dL (70-220) CORDELIA CHAVARRIA October 25, 2016 14:02
== END 2016-10-25 13:30 | disposition left against medical advice (07) | DRG 314 ==
LOC: E/R 14:37 → PP2 19:44 → OBSVTOIN 10-24 18:15
PROVIDERS: ADMIT Internal Medicine; ATTEND Internal Medicine
PROC: 5A1D60Z (ICD-10-PCS; 2016-10-23)
PROC: B5131ZA Fluoroscopy of Right Jugular Veins using Low Osmolar Contrast, Guidance (ICD-10-PCS; 2016-10-24)
PROC: 0JW Subcutaneous Tissue and Fascia, Revision (ICD-10-PCS; principal; 2016-10-24 13:00)
PROC: 05HM33Z Insertion of Infusion Device into Right Internal Jugular Vein, Percutaneous Approach (ICD-10-PCS; 2016-10-24 13:00)
DX: T82.868A Thrombosis due to vascular prosthetic devices, implants and grafts, initial encounter (principal); N18.6 End stage renal disease; T82.312A Breakdown (mechanical) of femoral arterial graft (bypass), initial encounter; I12.0 Hypertensive chronic kidney disease with stage 5 chronic kidney disease or end stage renal disease; I10 Essential (primary) hypertension; D53.9 Nutritional anemia, unspecified; D63.1 Anemia in chronic kidney disease; G89.29 Other chronic pain; E03.9 Hypothyroidism, unspecified; E13.22 Other specified diabetes mellitus with diabetic chronic kidney disease; E78.5 Hyperlipidemia, unspecified; F41.9 Anxiety disorder, unspecified; F32.9 Major depressive disorder, single episode, unspecified; Y83.2 Surgical operation with anastomosis, bypass or graft as the cause of abnormal reaction of the patient, or of later complication, without mention of misadventure at the time of the procedure; Z79.4 Long term (current) use of insulin; Z99.2 Dependence on renal dialysis; Z87.898 Personal history of other specified conditions; Z95.828 Presence of other vascular implants and grafts
CPT/HCPCS: 36415; 71010; 72170; 73520; 73590; 80048; 80053; 82550; 82553; 82962; 83036; 83735; 84100; 84484; 85025; 85610; 85730; 87081; 90935; 93005; 93971; 96374; 96375; 96376; G0378; C1725; C1752; J0690; J1100; J1170; J1200; J1644; J1815; J2250; J2270; J2370; J2405; J2765; J3010

== ENCOUNTER 2017-07-12 07:50 | Day surgery (SDC) | END 2017-07-12 14:20 | disposition home or self-care (01) ==